=== PATIENT | male | born 1955 | race Caucasian/White ===

== ENCOUNTER → 2020-12-05 | Day surgery (SDC) | payer MEDICARE, BC ==
[~2020-12-05] MED LIST: AMARYL 2MG TABLE2 MG PO; FLOMAX 0.4 MG0.4 MG PO; HUMIRA40 MG/0.8 SQ; LISINOPRIL40 MG PO; METFORMIN HCL1000 MG PO; NORCO 5-325 TA1 EACH PO; OZEMPIC0.25 MG/0. SQ; SULFAMETHOXAZO1 EACH PO; TRAMADOL HCL50 MG PO; VIT D PO
== END | disposition home or self-care (01) ==
LOC: OR 06:07
DX: K31.9 Disease of stomach and duodenum, unspecified (principal); K29.50 Unspecified chronic gastritis without bleeding; D62 Acute posthemorrhagic anemia; R19.7 Diarrhea, unspecified; R14.2 Eructation; K21.9 Gastro-esophageal reflux disease without esophagitis; N39.0 Urinary tract infection, site not specified; N40.0 Benign prostatic hyperplasia without lower urinary tract symptoms; I10 Essential (primary) hypertension; G47.30 Sleep apnea, unspecified; E11.9 Type 2 diabetes mellitus without complications; Z88.1 Allergy status to other antibiotic agents; Z20.822 Contact with and (suspected) exposure to COVID-19; E66.01 Morbid (severe) obesity due to excess calories
CPT/HCPCS: 82962; J2704; J7120

== ENCOUNTER → 2020-12-21 | Outpatient (CLI) | payer MEDICARE, BC | LOC: KOH-I 09:45 | DX: R10.9 Unspecified abdominal pain (principal); K76.0 Fatty (change of) liver, not elsewhere classified | CPT/HCPCS: 76705 ==

== ENCOUNTER → 2021-09-26 | Outpatient (CLI) | payer MEDICARE, BC | LOC: KOH-I 09:30 | DX: M54.59 Other low back pain (principal) | CPT/HCPCS: 74176 ==